=== PATIENT | female | born 1970 ===

== ENCOUNTER 2017-04-07 13:01 | Outpatient (CLI) | payer OTHER ==
--- NOTE | 2017-04-07 15:10 | DIAGNOSTIC IMAGING REPORT ---
PROCEDURE: XR BARIUM SWALLOW INDICATION: Possible reflux. TECHNIQUE: Double contrast study. Fluoroscopy time, 3.2 minutes; 2075.10 mGy. 60 fluoroscopic images (including cine fluoroscopy of the esophagus). COMPARISON: None. FINDINGS: Pharyngoesophagus is normal. Mild to moderate gastroesophageal reflux. Esophagus is otherwise normal. No constricting or polypoid lesions. IMPRESSION: 1. Mild to moderate gastroesophageal reflux. 2. Findings discussed with the patient.
[2017-04-10] MEDS ORDERED: OXYBUTYNIN CHLOR5 MG PO (14:37)
[2017-04-10] MEDS ORDERED: CITALOPRAM HYDR20 MG PO (14:37)
[2017-04-10] MEDS ORDERED: BUPROPION HCL100 M2 PO (14:37)
[2017-04-10] MEDS ORDERED: LISINOPRIL10 MG PO (14:37)
[2017-04-10] MEDS ORDERED: ZYRTEC ALLERGY10 M1 PO (14:38)
== END 2017-04-07 23:00 ==
LOC: XR SRH 13:01
DX: K21.9 Gastro-esophageal reflux disease without esophagitis (principal)